=== PATIENT | female | born 1945 | race Caucasian/White ===

== ENCOUNTER → 2020-09-09 | Outpatient (CLI) | payer MEDICARE ==
[~2020-09-09] MED LIST: ALBU2.5V8 INH; ALPR0.5T6 PO; FLUT1BLS3 IH; HYDR-3164 PO
== END ==
LOC: LAB 15:34
PROVIDERS: ATTEND Orthopaedic Surgery
DX: Z01.812 Encounter for preprocedural laboratory examination (principal); M75.02 Adhesive capsulitis of left shoulder; Z88.0 Allergy status to penicillin; Z20.828 Contact with and (suspected) exposure to other viral communicable diseases
CPT/HCPCS: U0003

== ENCOUNTER → 2020-09-13 | Day surgery (SDC) | payer MEDICARE ==
[~2020-09-13] VITALS: Ht 154.9 cm; Wt 73.5 kg
[~2020-09-13] MED LIST changes: +BUPIVACAINE MPF 0.5% 30 ML VIAL. IJ ONE; +CLINDAMYCIN 900MG PREMIX 50 ML IV PRN; +HYDROmorphone 2 MG/ML VIAL IV PRN; +IV RINGERS,LACTATED 1000ML 1,000 ML IV SCH; +LIDOCAINE 1% PF 2 ML VIAL. ID PRN; +MORPHINE SULFATE 2 MG/ML VIAL. IV PRN; +ONDANSETRON PF 4 MG/2 ML VIAL. IV PRN; +PROCHLORPERAZINE 10 MG/2 ML VIAL. IV PRN; +PROPOFOL 10 MG/ML (20ML) VIAL. IV ONE; +fentaNYL PF VIAL 100 MCG/2 ML VIAL IV PRN; +methylPREDNISolone ACETATE 80 MG/ML VIAL. INJ ONE
--- NOTE | 2020-09-13 07:34 | DISCH ---
DISCHARGE INSTRUCTIONS Condition on Discharge Condition on Discharge: Stable Activity After Discharge Activity Instructions for Disc: No restrictions Weight Bearing Status after Di: As tolerated Diet after Discharge Diet after Discharge: Regular Wound Incision Care Wound/Incision Care: Ice to area for comfort, No wound care needed Community/Resources/Services Services at Discharge: PT EVALUATE & TREAT (Immediate aggressive physical t herapy for passive and active range of motion maintaining motion with manipulation no restrictions whatsoever prescription provided) Contacting the DRJuliet after DC Call your doctor for: Concerns you may have Follow-Up Follow up with: Dr. Price 2 weeks AMBER PRICE MD Sep 13, 2020 07:34
[2020-09-13 08:45] VITALS: BP 125/71
--- NOTE | 2020-09-13 10:27 | PDOC4 ---
Operative Note Operative Note Date of surgery: 09/13/2020 Preoperative diagnosis: Adhesive capsulitis left shoulder Postoperative diagnosis: Same Operative procedure: Left shoulder manipulation under anesthesia and injection glenohumeral joint Surgeon: Dee Anesthesia: Deep propofol sedation provided by anesthesia Estimated blood loss: None Complications: None Operative indications: Patient is a 75-year-old female with adhesive capsulitis that is been unresponsive to nonoperative treatment with physical therapy and home stretching. We had talked about the natural course of the disease the possible intervention of physical therapy and the possibility of manipulation under anesthesia which she does wish to proceed with as she is very limited in her activities of daily living. I emphasized to her that physical therapy postoperatively would be crucial to maintain the motion that is regained with the manipulation procedure. All her questions were answered she wishes to proceed with the manipulation and injection procedure Operative text: Patient was identified procedure verified patient placed in the supine position on the operating table. After adequate amounts of deep sedation with propofol were administered the left shoulder was examined under anesthesia and noted to lack terminal 50 degrees of elevation and external rotation and abduction. After the audible and palpable release of tissue with manipulation she achieved full elevation external/internal rotation with no instability. Glenohumeral joint was then injected with 1 cc 80 mg milliliter Depo-Medrol and 3 cc of half percent plain Marcaine. She tolerated the procedure well and I emphasized the need for immediate physical therapy starting tomorrow with aggressive stretching at home to maintain her motion AMBER VICTORIA MD Sep 13, 2020 10:27
== END | disposition home or self-care (01) ==
LOC: SURG 06:58
PROVIDERS: ATTEND Orthopaedic Surgery
DX: M75.02 Adhesive capsulitis of left shoulder (principal); J44.9 Chronic obstructive pulmonary disease, unspecified; F41.9 Anxiety disorder, unspecified; M85.88 Other specified disorders of bone density and structure, other site; F17.210 Nicotine dependence, cigarettes, uncomplicated; Z79.899 Other long term (current) drug therapy; Z88.0 Allergy status to penicillin; Z98.51 Tubal ligation status; Z98.890 Other specified postprocedural states; Z72.89 Other problems related to lifestyle; Z82.49 Family history of ischemic heart disease and other diseases of the circulatory system
CPT/HCPCS: 20610; 23700; J1040; J2704; J3490